=== PATIENT | female | born 1950 | race Caucasian/White ===

== ENCOUNTER 2022-12-10 11:41 | Inpatient (IN) | payer MEDICARE, MEDICAID ==
[~2022-12-10] VITALS: Ht 160 cm; Wt 69.7 kg
[2022-12-10 12:15] LABS: BASOPHILS # (AUTO) 0.1 X10'3 (0-0.2); BASOPHILS % (AUTO) 1.2 % (0-1); EOSINOPHILS # (AUTO) 0.4 X10'3 (0-0.9); EOSINOPHILS % (AUTO) 4.2 % (0-6); HEMATOCRIT 39.5 % (35.0-45.0); HEMOGLOBIN 12.8 g/dl (12.0-16.0); LYMPHOCYTES # (AUTO) 3.3 X10'3 (1.1-4.8); LYMPHOCYTES % (AUTO) 30.8 % (21-51); MEAN CORPUSCULAR HEMOGLOBIN 30.3 PG (27.0-31.0); MEAN CORPUSCULAR HGB CONC 32.4 g/dL (33.0-36.5); MEAN CORPUSCULAR VOLUME 93.7 FL (78-98); MEAN PLATELET VOLUME 8.5 FL (7.4-10.4); MONOCYTES # (AUTO) 0.8 X10'3 (0-0.9); MONOCYTES % (AUTO) 7.6 % (2-12); NEUTROPHILS # (AUTO) 6.1 X10'3 (1.8-7.7); NEUTROPHILS % (AUTO) 56.2 % (42-75); PLATELET COUNT 265 X10'3 (140-440); RED BLOOD COUNT 4.22 X10'6 (4.20-5.60); RED CELL DISTRIBUTION WIDTH 14.6 % (11.5-14.5); WHITE BLOOD COUNT 10.8 X10'3 (4.5-11.0)
[2022-12-10 12:31] LABS: ALANINE AMINOTRANSFERASE 37 U/L (12-78); ALBUMIN 3.6 G/DL (3.4-5.0); ALBUMIN/GLOBULIN RATIO 1.1 (1.1-1.5); ALKALINE PHOSPHATASE 100 IU/L (46-116); ANION GAP 7 (8-16); ASPARTATE AMINO TRANSFERASE 24 U/L (10-37); BILIRUBIN,TOTAL 0.6 MG/DL (0.1-1.0); BLOOD UREA NITROGEN 21 MG/DL (7-18); BUN/CREATININE RATIO 22.1 (10.0-20.0); CALCIUM 9.2 MG/DL (8.5-10.1); CHLORIDE 103 MMOL/L (99-107); CREATININE 0.95 MG/DL (0.40-0.90); GLUCOSE 169 MG/DL (70-104); POTASSIUM 4.8 MMOL/L (3.5-5.1); SODIUM 138 MMOL/L (135-145); TOTAL CARBON DIOXIDE 27.9 MMOL/L (24-32); TOTAL PROTEIN 6.8 G/DL (6.4-8.2); eGFR 58 ML/MIN
[2022-12-10 12:39] LABS: MAGNESIUM 1.3 MG/DL (1.5-2.4)
[2022-12-10] MEDS ORDERED: aspirin 81mg tab.chew PO ONE (12:45)
[2022-12-10] MEDS: normal saline 1000ml 1,000 ML IV SCH ×2 (14:00→23:57)
[2022-12-10] MEDS ORDERED: magnesium 2GM in 50ml NS 50 ML IV PRN (14:00)
[2022-12-10] MEDS ORDERED: magnesium 4gm in 100ml NS 100 ML IV PRN (14:00)
[2022-12-10] MEDS ORDERED: ondansetron/PF 4mg/2ml inj IV PRN (14:00)
[2022-12-10] MEDS ORDERED: mag hydrox/Alum hydrox/simeth 30ml oral suspension PO PRN (14:00)
[2022-12-10] MEDS ORDERED: acetaminophen 650mg rectal suppository RC PRN (14:00)
[2022-12-10] MEDS ORDERED: morphine 2 MG/ML inj. syringe IV PRN ×2 (14:00)
[2022-12-10] MEDS ORDERED: magnesium hydroxide 30ml (MOM) UD suspension PO PRN (14:00)
[2022-12-10] MEDS ORDERED: aminophylline 250mg/10ml inj. IV PRN (14:00)
[2022-12-10] MEDS ORDERED: ondansetron 4mg rapidly disintigrating tab PO PRN (14:00)
[2022-12-10] MEDS ORDERED: metoprolol tartrate 1mg/ml inj IV PRN (14:00)
[2022-12-10] MEDS ORDERED: acetaminophen 325mg tablet PO PRN ×2 (14:00)
[2022-12-10] MEDS ORDERED: potassium Cl 20 mEq SR tablet PO PRN ×2 (14:00)
[2022-12-10] MEDS ORDERED: nitroGLYCERIN 0.4mg SUBLingual tab SL PRN (14:00)
[2022-12-10] MEDS ORDERED: PERFLUTREN PROTEIN-A MICROSPHR (Optison) 0.22 MG/ML 3ML VIAL IV ONE (14:00)
[2022-12-10] MEDS ORDERED: potassium Cl 40MEQ/1/2NS 520ml 520 ML IV PRN (14:00)
[2022-12-10] MEDS ORDERED: regadenoson 0.4mg/5ml syringe IV PRN (14:00)
[2022-12-10 14:51] LABS: CHOL/HDL RATIO 4.1 (0.00-4.99); CHOLESTEROL 170 MG/DL (0-200); HDL CHOLESTEROL 41 MG/DL (35-60); LDL CHOLESTEROL 107 MG/DL (50-100); TRIGLYCERIDES 146 MG/DL (20-135)
[2022-12-10] MEDS ORDERED: METO50TA16 PO (15:05)
[2022-12-10] MEDS ORDERED: naloxone 0.4 mg/ml inj IV PRN (15:05)
[2022-12-10] MEDS ORDERED: ATOR20TA66 PO (15:05)
[2022-12-10] MEDS ORDERED: LEVO112T5 PO (15:05)
[2022-12-10] MEDS ORDERED: LISI2.5T14 PO (15:05)
[2022-12-10] MEDS ORDERED: GABA300C PO (15:14)
[2022-12-10] MEDS ORDERED: GLIP10TA21 PO (15:14)
[2022-12-10] MEDS ORDERED: CHOL20002 PO (15:14)
[2022-12-10] MEDS ORDERED: ASPI-1475 PO (15:14)
[2022-12-10] MEDS ORDERED: LINA5TAB4 PO (15:14)
[2022-12-10] MEDS ORDERED: DULO60CA65 PO (15:14)
--- NOTE | 2022-12-10 15:58 | NUR ---
REPORT ATTEMPTED, CHEYANNE DOUGLAS TO CALL BACK.
--- NOTE | 2022-12-10 16:26 | NUR ---
REPORT GIVEN TO CHEYANNE DOUGLAS, PT TO GO TO BED 6490G
[2022-12-10 16:30] VITALS: BP 117/83
[2022-12-10] MEDS ORDERED: MESSAGE TO PHARMACY PO ONE (17:30)
[2022-12-10] MEDS ORDERED: DEXTROSE 15 GM of carb/4 tabs (each vial/BOTTLE has 4 tablets) PO PRN ×2 (17:30)
[2022-12-10] MEDS ORDERED: glucagon, human recombinant 1mg kit SUBCUT PRN (17:30)
[2022-12-10] MEDS ORDERED: dextrose 50%-water 50ml dispensing syringe IV PRN ×2 (17:30)
[2022-12-10] MEDS ORDERED: insulin Lispro (HumaLOG) vial - multi-dose SQ SCH (17:30)
[2022-12-10] MEDS ORDERED: iohexol 350MG/ML 100ml bottle IV ONE (17:40)
[2022-12-10 18:00] VITALS: BP 66/38
--- NOTE | 2022-12-10 18:31 | NUR ---
Problems reprioritized. Patient report given, questions answered & plan of care reviewed with Nicole EDWARD, patient stable at transfer of care.
[2022-12-10] MEDS: K and/or MAG REPLACEMENT MC SCH (20:00)
[2022-12-10] MEDS: metoprolol tartrate 50mg tablet PO SCH (20:00)
[2022-12-10] MEDS ORDERED: GADOTERATE MEGLUMINE 7.5 MMOL/15 ML VIAL IV ONE (20:09)
--- NOTE | 2022-12-10 20:40 | NUR ---
PT RETURNED TO FLOOR FROM MRI, ASYMPTOMATIC AND WITH NO COMPLAINTS. BLOOD PRESSURE IS 66/38. COULD NOT AUSCULTATE MANUAL BLOOD PRESSURE. PT STATES THAT THIS HAS BEEN AN ONGOING THING WITH HER WHEN SHE HAS BEEN IN OTHER HOSPITALS OVER THE PAST YEAR. DR. KU NOTIFIED. ORDER FO 500CC NS BOLUS.
[2022-12-10] MEDS ORDERED: normal saline 500ml IV soln 500 ML IV ONE ×2 (20:45→23:30)
[2022-12-10] MEDS: insulin glargine (Lantus) pen - multi-dose SQ SCH (21:00)
[2022-12-10] MEDS ORDERED: temazepam 15mg capsule PO PRN (21:00)
[2022-12-10] MEDS: docusate sod 100mg capsule PO SCH (21:02)
[2022-12-10] MEDS: gabapentin 300mg capsule PO SCH (21:02)
[2022-12-10] MEDS: magnesium Cl slow-release 64mg tablet PO PRN (21:03)
[2022-12-10] MEDS: HYDROcodone/acetaminophen 5mg/325mg tablet PO PRN (21:03)
[2022-12-10 22:00] VITALS: BP 67/40
[2022-12-11] VITALS (7 sets, daily range): BP systolic 63–128; BP diastolic 38–90
--- NOTE | 2022-12-11 01:08 | NUR ---
Blood pressure at 2200 67/40, Dr. Urbano notified. unable to obtain orthostatic blood pressure by automatic cuff or manual blood pressure reading. 500 cc bolus of NS given
--- NOTE | 2022-12-11 02:47 | NUR ---
BLOOD PRESSURE 67/45, PATIENT ASYMPTOMATIC. DR. KU NOTIFIED. NO NEW ORDERS.
[2022-12-11 06:18] LABS: BASOPHILS # (AUTO) 0.1 X10'3 (0-0.2); BASOPHILS % (AUTO) 0.9 % (0-1); EOSINOPHILS # (AUTO) 0.4 X10'3 (0-0.9); EOSINOPHILS % (AUTO) 5.1 % (0-6); HEMATOCRIT 36.4 % (35.0-45.0); HEMOGLOBIN 11.8 g/dl (12.0-16.0); LYMPHOCYTES # (AUTO) 3.5 X10'3 (1.1-4.8); LYMPHOCYTES % (AUTO) 39.4 % (21-51); MEAN CORPUSCULAR HEMOGLOBIN 30.3 PG (27.0-31.0); MEAN CORPUSCULAR HGB CONC 32.5 g/dL (33.0-36.5); MEAN CORPUSCULAR VOLUME 93.4 FL (78-98); MEAN PLATELET VOLUME 8.5 FL (7.4-10.4); MONOCYTES # (AUTO) 0.7 X10'3 (0-0.9); MONOCYTES % (AUTO) 8.4 % (2-12); NEUTROPHILS # (AUTO) 4.1 X10'3 (1.8-7.7); NEUTROPHILS % (AUTO) 46.2 % (42-75); PLATELET COUNT 241 X10'3 (140-440); RED CELL DISTRIBUTION WIDTH 14.7 % (11.5-14.5); WHITE BLOOD COUNT 8.8 X10'3 (4.5-11.0)
--- NOTE | 2022-12-11 06:28 | NUR ---
Patient report given, questions answered & plan of care reviewed with CHEYANNE Astudillo
[2022-12-11 06:35] LABS: ALANINE AMINOTRANSFERASE 27 U/L (12-78); ALBUMIN 3.1 G/DL (3.4-5.0); ALBUMIN/GLOBULIN RATIO 1.1 (1.1-1.5); ALKALINE PHOSPHATASE 79 IU/L (46-116); ANION GAP 9 (8-16); ASPARTATE AMINO TRANSFERASE 19 U/L (10-37); BILIRUBIN,TOTAL 0.6 MG/DL (0.1-1.0); BLOOD UREA NITROGEN 17 MG/DL (7-18); BUN/CREATININE RATIO 18.5 (10.0-20.0); CALCIUM 8.6 MG/DL (8.5-10.1); CHLORIDE 106 MMOL/L (99-107); CREATININE 0.92 MG/DL (0.40-0.90); GLUCOSE 154 MG/DL (70-104); MAGNESIUM 1.5 MG/DL (1.5-2.4); POTASSIUM 4.4 MMOL/L (3.5-5.1); SODIUM 142 MMOL/L (135-145); TOTAL CARBON DIOXIDE 26.6 MMOL/L (24-32); eGFR 60 ML/MIN
--- NOTE | 2022-12-11 06:40 | NUR ---
Patient in room PCU 7796M. I have received report from Nicole EDWARD and had the opportunity to ask questions and assume patient care. Pt is sitting high fowlers in bed and is getting 0600 VS. Pts am BP 76/47 night MD aware of soft BPs. 1,000ml bouls given on HS. Pt scheduled for BRIDGET. Bridget RN stated this pt not a candidate for stress test till BPs are 100, states resting HR can be tested. BLL, call light within reach, frequently used items in reach, frequent rounidng, soft tile setter socks on. Will continue to monitor.
[2022-12-11] MEDS: levoTHYROXINE 112mcg tablet PO SCH (07:00)
[2022-12-11] MEDS: K and/or MAG REPLACEMENT MC SCH ×2 (08:00→18:59)
[2022-12-11] MEDS: duloxetine 30mg CAPSULE.DR PO SCH (08:00)
[2022-12-11] MEDS: metoprolol tartrate 50mg tablet PO SCH (08:00)
[2022-12-11] MEDS ORDERED: lisinopril 2.5mg tablet PO SCH (08:00)
[2022-12-11] MEDS ORDERED: aspirin 81mg, enteric-coated 1 TAB TABLET.DR PO SCH (08:00)
[2022-12-11] MEDS: linagliptin 5mg tablet PO SCH (08:00)
--- NOTE | 2022-12-11 08:33 | NUR ---
PAGER ID: [phone] MESSAGE: May Corrigan [id number] B- Pt having soft BPs. Pt unable to participate in full Stress Test. Did you want to keep this Pt NPO? -Wilda LOPES [phone] Addendum: 12/11/22 at 1037 by Wilda Feldman RN MD stated Pt may eat.
[2022-12-11] MEDS: normal saline 1000ml 1,000 ML IV SCH ×4 (10:00→21:30)
--- NOTE | 2022-12-11 10:37 | NUR ---
PAGER ID: [phone] MESSAGE: May Corrigan [phone] B- Pt asking for Rizatriptan for headache. Pt states she takes it as a home med. Thank you-Wilda LOPES [phone] Addendum: 12/11/22 at 1330 by Wilda Feldman RN NNO given at this time. Please see eMAR for interventions. Will continue to monitor.
[2022-12-11] MEDS: atorvastatin 20mg tablet PO SCH (10:57)
[2022-12-11] MEDS: docusate sod 100mg capsule PO SCH ×2 (10:58→19:15)
[2022-12-11] MEDS: gabapentin 300mg capsule PO SCH ×2 (10:59→19:15)
[2022-12-11] MEDS: cholecalciferol (vitamin D3) 1,000 unit (25mcg) tablet PO SCH (10:59)
[2022-12-11] MEDS: aspirin 81mg tab.chew PO SCH (11:00)
[2022-12-11] MEDS ORDERED: SILD20TA PO (11:12)
[2022-12-11] MEDS ORDERED: METF-436 PO (11:13)
[2022-12-11] MEDS: HYDROcodone/acetaminophen 5mg/325mg tablet PO PRN ×3 (11:17→21:05)
[2022-12-11] MEDS ORDERED: gabapentin 300mg capsule PO SCH (12:50)
--- NOTE | 2022-12-11 15:01 | NUR ---
Per EMR pt with T2DM, well controlled with A1c 7.6%. Written DM education with RD contact information placed in patient's chart. Will remain available. Addendum: 12/11/22 at [address] Amended: Links added.
--- NOTE | 2022-12-11 18:28 | NUR ---
Problems reprioritized. Patient report given, questions answered & plan of care reviewed with Anya EDWARD.
[2022-12-11] MEDS: insulin glargine (Lantus) pen - multi-dose SQ SCH (21:00)
[2022-12-12] VITALS (7 sets, daily range): BP systolic 67–95; BP diastolic 40–67
[2022-12-12] MEDS: normal saline 1000ml 1,000 ML IV SCH ×4 (02:24→17:47)
[2022-12-12 06:45] LABS: BASOPHILS # (AUTO) 0.1 X10'3 (0-0.2); EOSINOPHILS # (AUTO) 0.4 X10'3 (0-0.9); EOSINOPHILS % (AUTO) 4.5 % (0-6); HEMATOCRIT 38.2 % (35.0-45.0); HEMOGLOBIN 12.2 g/dl (12.0-16.0); LYMPHOCYTES # (AUTO) 2.9 X10'3 (1.1-4.8); LYMPHOCYTES % (AUTO) 36.7 % (21-51); MEAN CORPUSCULAR HGB CONC 31.8 g/dL (33.0-36.5); MEAN CORPUSCULAR VOLUME 94.4 FL (78-98); MEAN PLATELET VOLUME 8.4 FL (7.4-10.4); MONOCYTES # (AUTO) 0.5 X10'3 (0-0.9); MONOCYTES % (AUTO) 6.9 % (2-12); NEUTROPHILS % (AUTO) 50.9 % (42-75); PLATELET COUNT 256 X10'3 (140-440); RED BLOOD COUNT 4.05 X10'6 (4.20-5.60); RED CELL DISTRIBUTION WIDTH 14.8 % (11.5-14.5); WHITE BLOOD COUNT 7.9 X10'3 (4.5-11.0)
--- NOTE | 2022-12-12 06:53 | NUR ---
Patient in room PCU 3013N. I have received report from Anya EDWARD and had the opportunity to ask questions and assume patient care. Pt is resting comfortably in bed. Pt awoken for VS. Pt states no c/o pain at this time. Pt asking for coffee. Pt on RA, no s/s of distress. BLL, call light within reach, frequently used items in reach, frequent rounding, research/program director socks on. Will continue to monitor.
[2022-12-12] MEDS: levoTHYROXINE 112mcg tablet PO SCH (07:00)
[2022-12-12 07:03] LABS: ALANINE AMINOTRANSFERASE 30 U/L (12-78); ALBUMIN 3.2 G/DL (3.4-5.0); ALKALINE PHOSPHATASE 83 IU/L (46-116); ANION GAP 9 (8-16); ASPARTATE AMINO TRANSFERASE 20 U/L (10-37); BILIRUBIN,TOTAL 0.6 MG/DL (0.1-1.0); BLOOD UREA NITROGEN 14 MG/DL (7-18); BUN/CREATININE RATIO 17.7 (10.0-20.0); CALCIUM 8.8 MG/DL (8.5-10.1); CHLORIDE 108 MMOL/L (99-107); CREATININE 0.79 MG/DL (0.40-0.90); GLUCOSE 159 MG/DL (70-104); MAGNESIUM 1.6 MG/DL (1.5-2.4); POTASSIUM 4.2 MMOL/L (3.5-5.1); SODIUM 143 MMOL/L (135-145); TOTAL CARBON DIOXIDE 25.7 MMOL/L (24-32); TOTAL PROTEIN 6.4 G/DL (6.4-8.2); eGFR 72 ML/MIN
[2022-12-12] MEDS: K and/or MAG REPLACEMENT MC SCH ×2 (08:00→19:09)
[2022-12-12] MEDS: linagliptin 5mg tablet PO SCH (08:33)
[2022-12-12] MEDS: docusate sod 100mg capsule PO SCH ×2 (08:34→19:35)
[2022-12-12] MEDS: HYDROcodone/acetaminophen 5mg/325mg tablet PO PRN ×3 (08:34→19:36)
[2022-12-12] MEDS: atorvastatin 20mg tablet PO SCH (08:34)
[2022-12-12] MEDS: duloxetine 30mg CAPSULE.DR PO SCH (08:34)
[2022-12-12] MEDS: aspirin 81mg tab.chew PO SCH (08:35)
[2022-12-12] MEDS: cholecalciferol (vitamin D3) 1,000 unit (25mcg) tablet PO SCH (08:35)
[2022-12-12] MEDS: gabapentin 300mg capsule PO SCH ×2 (08:35→19:35)
--- NOTE | 2022-12-12 10:55 | NUR ---
PAGER ID: [phone] MESSAGE: ShekharJeffyia [phone] B- Pt unable to complete BRIDGET d/t low BPs 80/50s. Pt asking to gome. -Wilda EXT [phone] Addendum: 12/12/22 at 1120 by Wilda Feldman RN NNO given at this time.
--- NOTE | 2022-12-12 11:19 | NUR ---
PAGER ID: [phone] MESSAGE: May Corrigan [phone] B- Pt asking for [place] for pain. Also, may this Pt have eat? -Wilda LOPES [phone] Addendum: 12/12/22 at 1141 by Wilda Feldman RN phoned back, gave no new orders.
--- NOTE | 2022-12-12 12:30 | NUR ---
Pt declines insulin coverage for BGs. Pt states she does not want to start insulin. She likes her current medication regime. Risks vs benifits explained. Education provided. Pt states understanding.
--- NOTE | 2022-12-12 13:52 | NUR ---
PAGER ID: [phone] MESSAGE: May Corrigan [id number] - Pt asking to eat. Can she have lunch? -Wilda EXT [phone] Addendum: 12/12/22 at 1410 by Wilda Feldman RN New orders given, please see interventions
[2022-12-12] MEDS ORDERED: traMADol 50MG tablet PO ONE (14:10)
--- NOTE | 2022-12-12 18:00 | NUR ---
Patient in room PCU 3017. I have received report from Pamela and had the opportunity to ask questions and assume patient care.
--- NOTE | 2022-12-12 18:12 | NUR ---
Problems reprioritized. Patient report given, questions answered & plan of care reviewed with Anya EDWARD.
[2022-12-12] MEDS: insulin glargine (Lantus) pen - multi-dose SQ SCH (21:00)
[2022-12-13] VITALS (7 sets, daily range): BP systolic 56–91; BP diastolic 40–62
[2022-12-13] MEDS: normal saline 1000ml 1,000 ML IV SCH ×5 (01:30→20:23)
[2022-12-13] MEDS: HYDROcodone/acetaminophen 5mg/325mg tablet PO PRN ×5 (02:37→20:17)
[2022-12-13 06:18] LABS: BASOPHILS # (AUTO) 0.1 X10'3 (0-0.2); BASOPHILS % (AUTO) 0.9 % (0-1); EOSINOPHILS # (AUTO) 0.3 X10'3 (0-0.9); EOSINOPHILS % (AUTO) 4.2 % (0-6); HEMATOCRIT 34.8 % (35.0-45.0); HEMOGLOBIN 11.3 g/dl (12.0-16.0); LYMPHOCYTES # (AUTO) 2.5 X10'3 (1.1-4.8); LYMPHOCYTES % (AUTO) 33.7 % (21-51); MEAN CORPUSCULAR HEMOGLOBIN 30.6 PG (27.0-31.0); MEAN CORPUSCULAR HGB CONC 32.5 g/dL (33.0-36.5); MEAN CORPUSCULAR VOLUME 94.2 FL (78-98); MEAN PLATELET VOLUME 8.5 FL (7.4-10.4); MONOCYTES # (AUTO) 0.6 X10'3 (0-0.9); MONOCYTES % (AUTO) 7.5 % (2-12); NEUTROPHILS % (AUTO) 53.7 % (42-75); PLATELET COUNT 241 X10'3 (140-440); RED CELL DISTRIBUTION WIDTH 14.7 % (11.5-14.5); WHITE BLOOD COUNT 7.4 X10'3 (4.5-11.0)
--- NOTE | 2022-12-13 06:19 | NUR ---
Patient in room PCU 3012M. I have received report from Anya EDWARD and had the opportunity to ask questions and assume patient care. Pt is laying low fowlers in bed, and is resting comfortably. Pt on RA, no s/s of distress. BLL, call light wihtin reach, frequently used items in reach, frequent rounding, liquid sugar fortifier socks on. Will continue to monitor.
--- NOTE | 2022-12-13 06:30 | NUR ---
Patient in room PCU 3017. I have received report from CHEYANNE Joyner and had the opportunity to ask questions and assume patient care. BLL,call light within reach. Pt in NAD.
[2022-12-13 06:31] LABS: ALANINE AMINOTRANSFERASE 32 U/L (12-78); ALBUMIN 2.9 G/DL (3.4-5.0); ALKALINE PHOSPHATASE 73 IU/L (46-116); ANION GAP 8 (8-16); ASPARTATE AMINO TRANSFERASE 25 U/L (10-37); BILIRUBIN,TOTAL 0.5 MG/DL (0.1-1.0); BLOOD UREA NITROGEN 11 MG/DL (7-18); BUN/CREATININE RATIO 15.7 (10.0-20.0); CALCIUM 8.8 MG/DL (8.5-10.1); CHLORIDE 109 MMOL/L (99-107); GLUCOSE 163 MG/DL (70-104); MAGNESIUM 1.4 MG/DL (1.5-2.4); POTASSIUM 4.4 MMOL/L (3.5-5.1); SODIUM 142 MMOL/L (135-145); TOTAL CARBON DIOXIDE 25.2 MMOL/L (24-32); TOTAL PROTEIN 5.9 G/DL (6.4-8.2); eGFR 83 ML/MIN
[2022-12-13] MEDS: levoTHYROXINE 112mcg tablet PO SCH (07:15)
[2022-12-13] MEDS: K and/or MAG REPLACEMENT MC SCH ×2 (07:43→19:48)
[2022-12-13] MEDS: magnesium Cl slow-release 64mg tablet PO PRN ×2 (07:56→20:18)
[2022-12-13] MEDS: aspirin 81mg tab.chew PO SCH (08:25)
[2022-12-13] MEDS: cholecalciferol (vitamin D3) 1,000 unit (25mcg) tablet PO SCH (08:25)
[2022-12-13] MEDS: gabapentin 300mg capsule PO SCH ×3 (08:26→16:09)
[2022-12-13] MEDS: duloxetine 30mg CAPSULE.DR PO SCH (08:26)
[2022-12-13] MEDS: atorvastatin 20mg tablet PO SCH (08:27)
[2022-12-13] MEDS: docusate sod 100mg capsule PO SCH ×2 (08:27→20:18)
[2022-12-13] MEDS: linagliptin 5mg tablet PO SCH (08:28)
--- NOTE | 2022-12-13 12:40 | NUR ---
Patient in room PCU 3017. I have received report from Dayami and had the opportunity to ask questions and assume patient care.
--- NOTE | 2022-12-13 12:58 | NUR ---
Problems reprioritized. Patient report given, questions answered & plan of care reviewed with CHEYANNE Garza.
[2022-12-13] MEDS ORDERED: magnesium 2GM in 50ml NS 50 ML IV PRN (15:25)
[2022-12-13] MEDS ORDERED: potassium Cl 20 mEq SR tablet PO PRN ×2 (15:25)
[2022-12-13] MEDS ORDERED: magnesium 4gm in 100ml NS 100 ML IV PRN (15:30)
[2022-12-13] MEDS ORDERED: potassium Cl 40MEQ/1/2NS 520ml 520 ML IV PRN (15:30)
--- NOTE | 2022-12-13 18:24 | NUR ---
Problems reprioritized. Patient report given, questions answered & plan of care reviewed with
--- NOTE | 2022-12-13 18:31 | NUR ---
Patient in room PCU 3017. I have received report from Kayla EDWARD and had the opportunity to ask questions and assume patient care.
[2022-12-13] MEDS: insulin glargine (Lantus) pen - multi-dose SQ SCH (21:00)
[2022-12-14] VITALS (7 sets, daily range): BP systolic 56–102; BP diastolic 32–62
[2022-12-14] MEDS: HYDROcodone/acetaminophen 5mg/325mg tablet PO PRN ×6 (01:04→22:10)
--- NOTE | 2022-12-14 02:31 | NUR ---
AGREE WITH CONSUMER SAFETY OFFICER ASSESSMENT
[2022-12-14] MEDS: normal saline 1000ml 1,000 ML IV SCH ×3 (04:18→20:34)
[2022-12-14 05:39] LABS: BASOPHILS # (AUTO) 0.1 X10'3 (0-0.2); BASOPHILS % (AUTO) 1.1 % (0-1); EOSINOPHILS # (AUTO) 0.3 X10'3 (0-0.9); EOSINOPHILS % (AUTO) 4.8 % (0-6); HEMATOCRIT 33.6 % (35.0-45.0); HEMOGLOBIN 11.1 g/dl (12.0-16.0); LYMPHOCYTES # (AUTO) 2.6 X10'3 (1.1-4.8); LYMPHOCYTES % (AUTO) 35.8 % (21-51); MEAN CORPUSCULAR HEMOGLOBIN 30.8 PG (27.0-31.0); MEAN CORPUSCULAR VOLUME 93.4 FL (78-98); MEAN PLATELET VOLUME 8.5 FL (7.4-10.4); MONOCYTES # (AUTO) 0.6 X10'3 (0-0.9); MONOCYTES % (AUTO) 7.7 % (2-12); NEUTROPHILS # (AUTO) 3.7 X10'3 (1.8-7.7); NEUTROPHILS % (AUTO) 50.6 % (42-75); PLATELET COUNT 232 X10'3 (140-440); RED CELL DISTRIBUTION WIDTH 14.7 % (11.5-14.5); WHITE BLOOD COUNT 7.3 X10'3 (4.5-11.0)
[2022-12-14 06:01] LABS: ALANINE AMINOTRANSFERASE 31 U/L (12-78); ALBUMIN 2.8 G/DL (3.4-5.0); ALKALINE PHOSPHATASE 73 IU/L (46-116); ANION GAP 9 (8-16); ASPARTATE AMINO TRANSFERASE 31 U/L (10-37); BILIRUBIN,TOTAL 0.5 MG/DL (0.1-1.0); BLOOD UREA NITROGEN 11 MG/DL (7-18); BUN/CREATININE RATIO 16.4 (10.0-20.0); CALCIUM 8.4 MG/DL (8.5-10.1); CHLORIDE 111 MMOL/L (99-107); CREATININE 0.67 MG/DL (0.40-0.90); GLUCOSE 150 MG/DL (70-104); MAGNESIUM 1.4 MG/DL (1.5-2.4); POTASSIUM 4.1 MMOL/L (3.5-5.1); SODIUM 145 MMOL/L (135-145); TOTAL CARBON DIOXIDE 24.6 MMOL/L (24-32); TOTAL PROTEIN 5.7 G/DL (6.4-8.2); eGFR 87 ML/MIN
--- NOTE | 2022-12-14 06:30 | NUR ---
Problems reprioritized. Patient report given, questions answered & plan of care reviewed with Lynn ABRAHAM.
--- NOTE | 2022-12-14 06:30 | NUR ---
Patient in room PCU 3017. I have received report from Liza ABRAHAM and had the opportunity to ask questions and assume patient care.
[2022-12-14] MEDS: gabapentin 300mg capsule PO SCH ×3 (07:52→17:14)
[2022-12-14] MEDS: levoTHYROXINE 112mcg tablet PO SCH (07:52)
[2022-12-14] MEDS: cholecalciferol (vitamin D3) 1,000 unit (25mcg) tablet PO SCH (07:53)
[2022-12-14] MEDS: duloxetine 30mg CAPSULE.DR PO SCH (07:53)
[2022-12-14] MEDS: docusate sod 100mg capsule PO SCH ×2 (07:53→20:53)
[2022-12-14] MEDS: atorvastatin 20mg tablet PO SCH (07:53)
[2022-12-14] MEDS: linagliptin 5mg tablet PO SCH (07:53)
[2022-12-14] MEDS: aspirin 81mg tab.chew PO SCH (07:53)
[2022-12-14] MEDS: magnesium Cl slow-release 64mg tablet PO PRN ×2 (07:57→20:53)
[2022-12-14] MEDS: K and/or MAG REPLACEMENT MC SCH ×2 (07:58→20:55)
--- NOTE | 2022-12-14 14:26 | NUR ---
promotional table spacer PAGER ID: [phone] MESSAGE: [id number] Shekhar Patient is asking what time she will be discharging. Thank you Lynn ABRAHAM [phone].
--- NOTE | 2022-12-14 17:06 | NUR ---
PER TELEPHONE CONVERSATION WITH DR QUILES SHE WOULD LIKE MIDODRINE 5 MG PO TID START TODAY NOW.
--- NOTE | 2022-12-14 17:12 | NUR ---
AGREE WITH CONSUMER MARKETING ANALYST AM ASSESSMENT
[2022-12-14] MEDS: midodrine 5mg tablet PO SCH (17:14)
--- NOTE | 2022-12-14 18:36 | NUR ---
Problems reprioritized. Patient report given, questions answered & plan of care reviewed with Ena ABRAHAM.
--- NOTE | 2022-12-14 18:47 | NUR ---
Patient in room PCU 3017. I have received report from Lynn ABRAHAM and had the opportunity to ask questions and assume patient care.
[2022-12-14] MEDS: insulin glargine (Lantus) pen - multi-dose SQ SCH (21:00)
[2022-12-15 02:00] VITALS: BP 88/56
[2022-12-15] MEDS: HYDROcodone/acetaminophen 5mg/325mg tablet PO PRN ×4 (03:44→16:54)
--- NOTE | 2022-12-15 05:44 | NUR ---
AGREE WITH CITY DISTRIBUTION CLERK ASSESSMENT
[2022-12-15] MEDS: normal saline 1000ml 1,000 ML IV SCH ×4 (06:30→21:07)
--- NOTE | 2022-12-15 06:30 | NUR ---
Patient in room PCU 3017. I have received report from Ena ABRAHAM and had the opportunity to ask questions and assume patient care.
--- NOTE | 2022-12-15 06:51 | NUR ---
Problems reprioritized. Patient report given, questions answered & plan of care reviewed with Lynn ABRAHAM.
[2022-12-15 06:56] LABS: BASOPHILS # (AUTO) 0.1 X10'3 (0-0.2); EOSINOPHILS # (AUTO) 0.4 X10'3 (0-0.9); EOSINOPHILS % (AUTO) 4.6 % (0-6); HEMATOCRIT 34.8 % (35.0-45.0); HEMOGLOBIN 11.4 g/dl (12.0-16.0); LYMPHOCYTES # (AUTO) 2.3 X10'3 (1.1-4.8); LYMPHOCYTES % (AUTO) 27.9 % (21-51); MEAN CORPUSCULAR HEMOGLOBIN 30.6 PG (27.0-31.0); MEAN CORPUSCULAR HGB CONC 32.8 g/dL (33.0-36.5); MEAN CORPUSCULAR VOLUME 93.4 FL (78-98); MEAN PLATELET VOLUME 8.9 FL (7.4-10.4); MONOCYTES # (AUTO) 0.7 X10'3 (0-0.9); MONOCYTES % (AUTO) 8.2 % (2-12); NEUTROPHILS # (AUTO) 4.8 X10'3 (1.8-7.7); NEUTROPHILS % (AUTO) 58.3 % (42-75); PLATELET COUNT 237 X10'3 (140-440); RED BLOOD COUNT 3.72 X10'6 (4.20-5.60); RED CELL DISTRIBUTION WIDTH 14.2 % (11.5-14.5); WHITE BLOOD COUNT 8.2 X10'3 (4.5-11.0)
[2022-12-15 07:00] VITALS: BP_SYST 106; BP_SYST 77; BP_DIAS 54; BP_DIAS 63
[2022-12-15 07:19] LABS: ALANINE AMINOTRANSFERASE 35 U/L (12-78); ALBUMIN 2.9 G/DL (3.4-5.0); ALKALINE PHOSPHATASE 73 IU/L (46-116); ANION GAP 8 (8-16); ASPARTATE AMINO TRANSFERASE 25 U/L (10-37); BILIRUBIN,TOTAL 0.5 MG/DL (0.1-1.0); BLOOD UREA NITROGEN 12 MG/DL (7-18); BUN/CREATININE RATIO 16.7 (10.0-20.0); CALCIUM 8.8 MG/DL (8.5-10.1); CHLORIDE 110 MMOL/L (99-107); CREATININE 0.72 MG/DL (0.40-0.90); GLUCOSE 155 MG/DL (70-104); POTASSIUM 4.1 MMOL/L (3.5-5.1); SODIUM 140 MMOL/L (135-145); TOTAL CARBON DIOXIDE 21.9 MMOL/L (24-32); TOTAL PROTEIN 5.8 G/DL (6.4-8.2); eGFR 80 ML/MIN
[2022-12-15] MEDS: K and/or MAG REPLACEMENT MC SCH ×2 (08:00→20:00)
[2022-12-15] MEDS ORDERED: atorvastatin 20mg tablet PO SCH (08:00)
[2022-12-15] MEDS: midodrine 5mg tablet PO SCH ×3 (08:03→16:54)
[2022-12-15] MEDS: linagliptin 5mg tablet PO SCH (08:04)
[2022-12-15] MEDS: levoTHYROXINE 112mcg tablet PO SCH (08:04)
[2022-12-15] MEDS: duloxetine 30mg CAPSULE.DR PO SCH (08:04)
[2022-12-15] MEDS: cholecalciferol (vitamin D3) 1,000 unit (25mcg) tablet PO SCH (08:04)
[2022-12-15] MEDS: gabapentin 300mg capsule PO SCH ×3 (08:04→16:53)
[2022-12-15] MEDS: docusate sod 100mg capsule PO SCH ×2 (08:04→20:00)
[2022-12-15] MEDS: aspirin 81mg tab.chew PO SCH (08:05)
[2022-12-15 08:30] VITALS: BP_SYST 80; BP_SYST 92; BP_DIAS 62
[2022-12-15 11:00] VITALS: BP_SYST 87; BP_SYST 88; BP_DIAS 56; BP_DIAS 58
--- NOTE | 2022-12-15 11:18 | NUR ---
Dr Ba gave verbal orders for patient to see a tele neurologist prior to discharge.
--- NOTE | 2022-12-15 13:54 | NUR ---
I AGREE WITH SACK REPAIRER ASSESSMENT
[2022-12-15 15:13] VITALS: BP 86/50
--- NOTE | 2022-12-15 15:39 | NUR ---
PAGER ID: [phone] MESSAGE: [id number] Shekhar Tele Neuro wants you to call him to discuss the patient. The phone number is [phone] Thank you Lynn ABRAHAM [phone]
--- NOTE | 2022-12-15 18:04 | NUR ---
Spoke with Tele Neuro States the was sent incorrectly he corrected .
--- NOTE | 2022-12-15 18:27 | NUR ---
Problems reprioritized. Patient report given, questions answered & plan of care reviewed with Ena ABRAHAM.
[2022-12-15] MEDS ORDERED: MIDO5TAB4 PO (18:31)
[2022-12-15] MEDS ORDERED: ATOR20TA66 PO (18:31)
[2022-12-15] MEDS ORDERED: CLOP-32 PO (18:31)
[2022-12-15 19:00] VITALS: BP_SYST 86
[2022-12-15] MEDS: insulin glargine (Lantus) pen - multi-dose SQ SCH (21:00)
--- NOTE | 2022-12-16 02:40 | NUR ---
Approx 2019 Mrs. Corrigan Discharged home after this DIRECTOR APPAREL D/cd Pt. IV to Left Arm, Pt. Tolerated well. This DIRECTOR APPAREL Went over Discharge instructions together Pt. Verbalized understanding of the importance of Following up with Her PCP in 1 Week, as well as an appointment with a brush clearer surveying, Pt. Stated that She she was in agreement and would F/u per MD Order. This DIRECTOR APPAREL Went over All Discharge instructions, As well As new Medications, Pt. Verbalized D/c plan and is in Agreement. All New Medication orders sent to [facility]. Pt. Took all Personal Belongings that she brought with her upon arrival, All Pt's Personal Items stayed with Pt. Her stay here. Pt. Assisted Down to Lobby from PCU, 3rd floor by staff along with her friend present. Mrs. Rodriguez, VSS At time of Discharge no S/sx of pain noted or C/o distress at this time. This DIRECTOR APPAREL reviewed all D/C orders With Pt who is A&O x 4 and Verbalized understanding. MD Orders And follow up plans. Pt. Assisted Down to Lobby from PCU, 3rd floor by staff along with her friend present. Pt. and all her belongings and D/c instructions Assisted into Vehicle by Staff and Tolerated well.
== END 2022-12-15 20:40 | disposition home or self-care (01) | DRG 69 ==
LOC: ER 11:42 → ED HOLD 14:06 → PCU 3S 17:12
PROVIDERS: ADMIT Family Medicine; ATTEND Family Medicine
PROC: B3251ZZ Computerized Tomography (CT Scan) of Bilateral Common Carotid Arteries using Low Osmolar Contrast (ICD-10-PCS; principal; 2022-12-10)
PROC: B32G1ZZ Computerized Tomography (CT Scan) of Bilateral Vertebral Arteries using Low Osmolar Contrast (ICD-10-PCS; 2022-12-10)
PROC: B32R1ZZ Computerized Tomography (CT Scan) of Intracranial Arteries using Low Osmolar Contrast (ICD-10-PCS; 2022-12-10)
PROC: B3281ZZ Computerized Tomography (CT Scan) of Bilateral Internal Carotid Arteries using Low Osmolar Contrast (ICD-10-PCS; 2022-12-10)
DX: G45.9 Transient cerebral ischemic attack, unspecified (principal); I21.4 Non-ST elevation (NSTEMI) myocardial infarction; E05.00 Thyrotoxicosis with diffuse goiter without thyrotoxic crisis or storm; E11.51 Type 2 diabetes mellitus with diabetic peripheral angiopathy without gangrene; E78.00 Pure hypercholesterolemia, unspecified; E83.42 Hypomagnesemia; F17.210 Nicotine dependence, cigarettes, uncomplicated; I95.9 Hypotension, unspecified; Z60.2 Problems related to living alone; R01.1 Cardiac murmur, unspecified; R09.89 Other specified symptoms and signs involving the circulatory and respiratory systems; R47.1 Dysarthria and anarthria; G31.84 Mild cognitive impairment of uncertain or unknown etiology; E11.40 Type 2 diabetes mellitus with diabetic neuropathy, unspecified; I10 Essential (primary) hypertension; I70.8 Atherosclerosis of other arteries; Z79.84 Long term (current) use of oral hypoglycemic drugs; Z79.899 Other long term (current) drug therapy; Z90.710 Acquired absence of both cervix and uterus; Z71.6 Tobacco abuse counseling
CPT/HCPCS: 36415; 70450; 70496; 70498; 70553; 71045; 72125; 72141; 78451; 80053; 80061; 82948; 83036; 83735; 83880; 84439; 84443; 84484; 85025; 87081; 93005; 93306; 93922; 93925; 97110; 97116; 97161; 97530; 97535; 99285; A9500; A9575; G0378; J1815; J3490; J7030; J7040; Q9967